=== PATIENT | male | born 1950 | race Caucasian/White ===

== ENCOUNTER 2017-04-11 22:39 | Emergency (ER) | payer MEDICARE ==
--- NOTE | 2017-04-11 22:56 | ED.PDOC ---
History of Present Illness - General Chief Complaint: Behavioral / Psych Stated Complaint: anxious Time Seen by Provider: 04/11/17 22:51 Source: patient, RN notes reviewed, Vital Signs reviewed, EMS Exam Limitations: no limitations - History of Present Illness Initial Comments: Patient reports that he feels like he is going to crawl out of his skin. Very anxious. Called EMS due to just not being able to drive anymore. + nausea & vomiting X3. He did take 2 doses of pain medication today for a chronic shoulder issue. He also took some buspar. He is diabetic but BS checked by EMS was 157. Timing/Duration: this evening Severity: moderate Associated Symptoms: anxiety Allergies/Adverse Reactions: Allergies Codeine Allergy (Verified 04/11/17 22:53) Penicillamine Allergy (Verified 04/11/17 22:53) Home Medications: Ambulatory Orders Buspar 04/11/17 Triazolam 04/11/17 Lorazepam [Ativan] 0.5 mg PO BID PRN #10 tab 04/12/17 Review of Systems - Review of Systems Constitutional: States: no symptoms reported EENTM: States: no symptoms reported Respiratory: States: no symptoms reported Cardiology: States: no symptoms reported Gastrointestinal/Abdominal: States: nausea, vomiting. Denies: abdominal pain Musculoskeletal: States: joint pain - R shoulder - chronic Skin: States: no symptoms reported Neurological: States: see HPI, anxiety, headache - chronic per patient All other Systems: No Change from Baseline Family Medical History - Family History Paternal Family History: Unknown Living Status: Unknown Physical Exam - Physical Exam General Appearance: Agitated, Anxious, Obvious distress, Well Developed, Well Groomed, Well Hydrated, Well Nourished Neck: non-tender, full range of motion, supple, normal inspection Respiratory: chest non-tender, lungs clear, normal breath sounds, no respiratory distress, no accessory muscle use Cardiovascular/Chest: regular rate, rhythm, no edema, no gallop, no JVD, no murmur Gastrointestinal/Abdominal: normal bowel sounds, non tender, soft, no organomegaly, no pulsatile mass Extremities Exam: non-tender, normal range of motion, no evidence of injury Neurological: alert, oriented x 3, anxious Appearance: appropriate appearance, appropriate insight Behavior/Eye Contact/Speech: cooperative, good eye contact, normal speech Thoughts/Hallucinations: normal thought pattern Skin Exam: normal color, warm/dry Progress - Progress Progress: 04/11/17 23:40 Patient is feeling better after Ativan but legs are still very restless. Will try Mirapex. 04/12/17 00:06 Decided to hold Mirapex as when left alone patient is sleeping comfortably. 04/12/17 01:33 Patient still sleeping but easily arousable. Less anxious, feeling better. No longer moving his legs all over. Much calmer. Will d/c home with Rx for Ativan and follow up with PCP. - Results/Orders Results/Orders: Laboratory Tests 04/11/17 04/11/17 04/11/17 23:05 23:05 23:05 WBC 8.9 RBC 4.83 Hgb 12.8 L Hct 38.6 L MCV 79.8 L MCH 26.5 L MCHC 33.1 RDW 15.1 H Plt Count 250 MPV 7.1 L Absolute Neuts (auto) 7.20 H Absolute Lymphs (auto) 1.00 Absolute Monos (auto) 0.50 Absolute Eos (auto) 0.10 Absolute Basos (auto) 0.10 Neutrophils % 81.5 H Lymphocytes % 11.7 L Monocytes % 5.6 Eosinophils % 0.6 L Basophils % 0.6 Sodium 139 Potassium 3.8 Chloride 104 Carbon Dioxide 30 Anion Gap 8.8 L BUN 19 H Creatinine 0.83 BUN/Creatinine Ratio 22.9 H Random Glucose 97 Serum Osmolality 279.7 Calcium 9.6 Total Bilirubin 0.2 AST 19 ALT 17 Alkaline Phosphatase 64 Serum Total Protein 6.2 L Albumin 3.8 Globulin 2.4 Albumin/Globulin Ratio 1.6 Urine Color Urine Appearance Urine pH Ur Specific [place] Urine Protein Urine Glucose (UA) Urine Ketones Urine Blood Urine Nitrite Urine Bilirubin Urine Urobilinogen Ur Leukocyte Esterase Urine RBC Urine WBC Ur Epithelial Cells Urine Bacteria Urine Mucus Urine Opiates Screen Urine Barbiturates Ur Phencyclidine Scrn U Amphetamin/Meth Scrn U Benzodiazepines Scrn U Cocaine Metab Screen U Cannabinoids Screen Ethyl Alcohol < 5.40 04/11/17 04/11/17 23:10 23:10 WBC RBC Hgb Hct MCV MCH MCHC RDW Plt Count MPV Absolute Neuts (auto) Absolute Lymphs (auto) Absolute Monos (auto) Absolute Eos (auto) Absolute Basos (auto) Neutrophils % Lymphocytes % Monocytes % Eosinophils % Basophils % Sodium Potassium Chloride Carbon Dioxide Anion Gap BUN Creatinine BUN/Creatinine Ratio Random Glucose Serum Osmolality Calcium Total Bilirubin AST ALT Alkaline Phosphatase Serum Total Protein Albumin Globulin Albumin/Globulin Ratio Urine Color Yellow Urine Appearance Clear Urine pH 6.5 Ur Specific [place] 1.025 Urine Protein Negative Urine Glucose (UA) Negative Urine Ketones Negative Urine Blood Negative Urine Nitrite Negative Urine Bilirubin Negative Urine Urobilinogen 0.2 Ur Leukocyte Esterase Negative Urine RBC 0 Urine WBC 0 Ur Epithelial Cells 0 Urine Bacteria Rare Urine Mucus Trace Urine Opiates Screen Negative Urine Barbiturates Negative Ur Phencyclidine Scrn Negative U Amphetamin/Meth Scrn Negative U Benzodiazepines Scrn Negative U Cocaine Metab Screen Negative U Cannabinoids Screen Negative Ethyl Alcohol Departure - Departure Clinical Impression: Anxiety disorder due to known physiological condition Time of Disposition: 01:35 Disposition: Discharge to Home or Self Care Condition: Good Departure Forms: ED Discharge - Pt. Copy, Patient Portal Self Enrollment Instructions: Generalized Anxiety Disorder Diet: resume usual diet Activity: increase activity as tolerated Referrals: Reji Guadarrama MD [Primary Care Provider] - 1-5 Days Prescriptions: Lorazepam [Ativan] 0.5 mg PO BID PRN #10 tab PRN Reason: Anxiety Home Medications: Ambulatory Orders Buspar 04/11/17 Triazolam 04/11/17 Lorazepam [Ativan] 0.5 mg PO BID PRN #10 tab 04/12/17
[2017-04-11] MEDS ORDERED: PRAMIPEXOLE 0.25 MG TAB PO ONE (23:40)
[2017-04-12 00:21] VITALS: O2SAT 93
[2017-04-12 01:53] VITALS: BP 117/68; TEMP 97.2
== END 2017-04-12 01:53 | disposition home or self-care (01) ==
LOC: ER 22:39
DX: F06.4 Anxiety disorder due to known physiological condition (principal); E11.9 Type 2 diabetes mellitus without complications; Z88.6 Allergy status to analgesic agent; Z88.0 Allergy status to penicillin; Z79.899 Other long term (current) drug therapy
CPT/HCPCS: 36415; 80053; 80307; 80320; 81001; 85025; J2060

== ENCOUNTER → 2017-07-04 | Outpatient (CLI) | payer MEDICARE | END | disposition home or self-care (01) | LOC: GMAB 16:31 | PROVIDERS: ATTEND Family Medicine | DX: Z12.5 Encounter for screening for malignant neoplasm of prostate (principal) ==

== ENCOUNTER → 2018-05-22 | Outpatient (CLI) | payer OTHER, MEDICARE | LOC: GMAJS 10:23 | PROVIDERS: ATTEND Family Medicine | DX: R97.20 Elevated prostate specific antigen [PSA] (principal) ==

== ENCOUNTER → 2018-06-07 | Outpatient (CLI) | payer MEDICARE ==
--- NOTE | 2018-06-07 14:55 | CT ---
EXAM DESCRIPTION: Chest w/o Contrast : Computed Tomography. CLINICAL HISTORY: PULMONARY NODULE. Possible 5 mm pulmonary nodule left lung COMPARISON: . Chest x-ray at [facility] 10/30/2017. TECHNIQUE: Spiral-axial scans at 2.5 mm intervals through the lungs and thorax without IV contrast. 2.5 mm lung algorithm axial reconstructions. 2.0 Mm reconstructions. Total Exam DLP: 380.05 mGy-cm. This exam was performed according to our departmental dose-optimization program which includes automated exposure control, adjustment of the mA and/or kV according to patient size and/or use of iterative reconstruction technique; to reduce radiation dose to as low as reasonably achievable (ALARA). FINDINGS: [place]- shaped subpleural nodule measuring 6 mm, too small to determine calcification in the lateral left upper lobe (axial series 2, image 15). Smooth margins. No suspicious nodules in the region of interest as described on the chest x-ray. Large hiatal hernia extending into the left hemithorax at the base with compression atelectasis of the left lower lobe. Minimal fibrosis at the base of the lingula. Dependent atelectasis or fibrosis in the base of the right lung. Occasional paraseptal blebs in the right upper lobe. No suspicious nodules masses or infiltrates in the right lung. No pleural effusion or pneumothorax bilaterally. Normal radiodensity in the thyroid gland. Evaluation of the soft tissues limited due to lack of IV contrast. No enlarged lymph nodes in the axilla, chest wall, mediastinum or hilum. Large hiatal hernia also impresses on the inferior left posterior mediastinum. Minimal atherosclerotic calcification in the thoracic aorta. Included peritoneal space with no fluid or free air. Included margins demonstrating normal density and gallbladder is visualized. No gastric outlet obstruction. Moderate thoracic kyphoscoliosis. Minimal narrowing of the bilateral glenohumeral joints. Other included osseous structures are unremarkable. IMPRESSION: 1. 6 mm juxtapleural nodule, probably soft tissue with lobular to smooth margins, and no spiculations, in the lateral left upper lobe near the apex. No nodule is seen in the region indicated by previous chest x-ray. No routine CT follow-up is recommended, following [employer] Best Practice recommendations for perifissural and juxtapleural nodules. Reference: Radiology. 2017.; 284(1):228-24; Radiology. 2011; 265(2):611-6; Radiology. 2009; 254:949-56 2. Minimal paraseptal blebs in the bilateral upper lobes. Consistent with mild emphysema. 3. Compressive atelectasis in the left lower lobe due to large hiatal hernia also with mass effect on the inferior mediastinum. Electronically signed by: Wally Hunt MD 06/07/2018 2:53 PM CDT
== END ==
LOC: CT 08:00
PROVIDERS: ATTEND Family Medicine
DX: R91.8 Other nonspecific abnormal finding of lung field (principal); R91.1 Solitary pulmonary nodule

== ENCOUNTER → 2018-07-26 | Outpatient (CLI) | payer MEDICARE | LOC: GMAE 16:55 | PROVIDERS: ATTEND Family Medicine | DX: D53.9 Nutritional anemia, unspecified (principal); G25.81 Restless legs syndrome ==

== ENCOUNTER → 2018-09-17 | Outpatient (CLI) | payer MEDICARE ==
--- NOTE | 2018-09-17 16:30 | CT ---
PROCEDURE: Abdoment/Pelvis w/o Contrast HISTORY: RENAL COLIC Indication: Same as above Comparison: None Technique: CT of the abdomen and pelvis was done without intravenous contrast. Images were obtained from the lung base to the level of the pubic symphysis in axial plane, followed by orthogonal sagittal and coronal reconstruction. Oral contrast was not given for the study. This exam was performed according to our departmental dose-optimization program, which includes automated exposure control, adjustment of the mA and/or KV according to the patient's size and/or use of iterative reconstruction technique. FINDINGS: Images through the lung bases do not show any focal infiltrates or pleural effusions. The liver, gallbladder, pancreas, spleen and the bilateral adrenal glands appear unremarkable, given the limitation of lack of intravenous contrast. The bilateral kidneys do not show any evidence of hydronephrosis or nephrolithiasis. The bilateral ureters and the bilateral periureteral soft tissues and fat planes are unremarkable. The prostate is significantly enlarged. There is circumferential thickening of the wall of the urinary bladder which may be due to underlying cystitis or due to detrusor hypertrophy due to enlarged prostate gland There is a large hiatal hernia containing significant portion of the stomach The small bowel appears unremarkable, without any evidence of small bowel obstruction or bowel wall thickening. There is no CT evidence of acute appendicitis, pericecal inflammatory change or ileocecal mesenteric adenitis. The ileocecal junction appears unremarkable. There is no CT evidence of acute colonic diverticulitis or colitis or large bowel obstruction. There is large bowel diverticulosis There is no pathological lymphadenopathy in the retroperitoneum or in the pelvic region. There is no evidence of free fluid or free air in the abdomen or the pelvic region. There is no clinically significant abdominal aortic aneurysm. There is presence of small fat-containing periumbilical ventral hernia. There is a tiny fat-containing periumbilical ventral hernia as well The visualized lumbar spine shows a scoliotic curvature with superimposed mild degenerative change. The paravertebral soft tissues are unremarkable. The remainder of the pelvic structures are unremarkable. IMPRESSION: The bilateral kidneys do not show any evidence of hydronephrosis or nephrolithiasis. The prostate is significantly enlarged. There is circumferential thickening of the wall of the urinary bladder which may be due to underlying cystitis or due to detrusor hypertrophy due to enlarged prostate gland There is a large hiatal hernia containing significant portion of the stomach Electronically signed by: Mio Zaragoza MD 09/17/2018 4:28 PM CDT Workstation: [id number]
== END ==
LOC: CT 15:53
PROVIDERS: ATTEND Family Medicine
DX: N23 Unspecified renal colic (principal); K44.9 Diaphragmatic hernia without obstruction or gangrene; R97.20 Elevated prostate specific antigen [PSA]

== ENCOUNTER → 2018-11-02 | Outpatient (CLI) | payer MEDICARE | LOC: GMAE 10:18 | PROVIDERS: ATTEND Family Medicine | DX: M10.072 Idiopathic gout, left ankle and foot (principal) ==

== ENCOUNTER → 2019-02-25 | Outpatient (CLI) | payer MEDICARE | LOC: GMAE 18:23 | PROVIDERS: ATTEND Family Medicine | DX: E11.42 Type 2 diabetes mellitus with diabetic polyneuropathy (principal); G60.3 Idiopathic progressive neuropathy ==

== ENCOUNTER → 2019-10-22 | Outpatient (CLI) | payer MEDICARE ==
--- NOTE | 2019-10-22 21:05 | US ---
EXAM DESCRIPTION: Gall Bladder: ULTRASOUND. CLINICAL HISTORY: LEFT LOWER QUADRANT PAIN COMPARISON: Abdomen pelvis CT scan August 2018. TECHNIQUE: Transabdominal scanning: Gregg-scale and Doppler modes. FINDINGS: Gallbladder: Normal size. Multiple echogenic stones with posterior acoustic shadowing mobile with patient change in position. No fluid around the gallbladder. No wall thickening. 2.1 mm. Non-tender with transducer pressure. Common bile duct: caliber 4.1 mm within normal limits. Liver: normal echogenicity; contour liver capsule smooth where seen. No fluid around the liver. Intrahepatic biliary ducts normal caliber. Doppler hepatopedal flow portal vein.. Long axis right lobe 15.6 cm. Pancreas: Not well visualized. Aorta: 1.5 cm proximal normal caliber. Right kidney: text. IMPRESSION: 1. Cholelithiasis but nontender, so cholecystitis is unlikely. Normal caliber of the common bile duct. No ascites. 2. Liver, right kidney, and aorta are unremarkable. Pancreas was not well seen. Electronically signed by: Wally Hunt MD 10/22/2019 9:03 PM [facility]
== END ==
LOC: US 13:10
PROVIDERS: ATTEND Family Medicine
DX: K80.20 Calculus of gallbladder without cholecystitis without obstruction (principal); R63.4 Abnormal weight loss

== ENCOUNTER → 2020-01-23 | Outpatient (CLI) | payer MEDICARE | LOC: GMAE 14:25 | PROVIDERS: ATTEND Family Medicine | DX: Z12.5 Encounter for screening for malignant neoplasm of prostate (principal); Z79.899 Other long term (current) drug therapy; E11.42 Type 2 diabetes mellitus with diabetic polyneuropathy | CPT/HCPCS: 84443; G0103 ==

== ENCOUNTER → 2020-05-04 | Outpatient (CLI) | payer MEDICARE | LOC: GMAE 14:33 | PROVIDERS: ATTEND Family Medicine | DX: R97.20 Elevated prostate specific antigen [PSA] (principal); E11.65 Type 2 diabetes mellitus with hyperglycemia ==

== ENCOUNTER 2020-05-09 15:25 | Inpatient (IN) | payer MEDICARE ==
[2020-05-09] MEDS ORDERED: SODIUM CHLORIDE 0.9% 1000ML 1,000 ML IVS ONE ×2 (15:52→20:26)
--- NOTE | 2020-05-09 16:19 | RAD ---
EXAM DESCRIPTION: Abdomen Series CLINICAL HISTORY: 69 years Male ,3d diarrhea COMPARISON: 09/17/2018 TECHNIQUE: Frontal view chest x-ray and two views of the abdomen. FINDINGS: The cardiomediastinal silhouette appears unremarkable. No consolidating infiltrates or pleural effusions. Retrocardiac density appears to represent hiatal hernia as noted on the previous CT of the abdomen and pelvis. No free air is identified beneath the hemidiaphragms. No dilated loops of bowel to suggest obstruction. Scoliosis in the thoracolumbar spine. IMPRESSION: Retrocardiac density likely reflecting known hiatal hernia. No acute process in the abdomen Electronically signed by: Katya Herrera MD 05/09/2020 4:18 PM CDT
[2020-05-09] MEDS ORDERED: KCL 40MEQ/NS 1,000 ML IVS ONE (16:44)
[2020-05-09] MEDS ORDERED: metroNIDAZOLE IV PREMIX 500MG 500 MG in PREMIX BAG 1 BAG IVPB ONE (17:05)
[2020-05-09] MEDS ORDERED: levoFLOXacin 500MG IV 500 MG in PREMIX BAG 1 BAG IVPB ONE (17:05)
[2020-05-09] MEDS ORDERED: ONDANSETRON INJ 4 MG/2 ML VIAL IV ONE (17:37)
--- NOTE | 2020-05-09 17:43 | CT ---
PROCEDURE: CT Abdomen/Pelvis w/o Contrast CLINICAL HISTORY: 69 years Male Diarrhea 4d, 77% bands on blood work TECHNIQUE: Contiguous axial images obtained through the abdomen and pelvis without intravenous contrast administration. Coronal and sagittal reformatted images provided. This CT exam was performed according to our departmental dose-optimization program, which includes one or more of the following dose reduction techniques: automated exposure control, adjustment of the mA and/or kV according to patient size, and/or use of iterative reconstruction technique. COMPARISON: 09/17/2018 FINDINGS: Again seen is a moderate to large hiatal hernia containing the majority of the stomach. No gastric volvulus or evidence of obstruction. Minimal bibasilar atelectasis. Again seen is a large distal duodenal diverticulum containing an air-fluid level. This does not appear inflamed. There is mild inflammation of the pericolonic fat adjacent to the ascending colon without visualized mural thickening on this noncontrast study. There is trace free fluid in the pelvis. No other inflammatory changes noted. There is colonic diverticulosis without visualized focal diverticulitis. Pancreatic atrophy without inflammation or focal lesion. The unenhanced liver, biliary tree, gallbladder, spleen, adrenal glands, and kidneys are normal. Again seen is pronounced enlargement of the prostate with diffuse thickening of the urinary bladder wall. The bladder is decompressed. Atherosclerosis without abdominal aortic aneurysm. S-shaped thoracolumbar scoliosis without acute fracture or aggressive osseous lesion. IMPRESSION: Findings suggestive of mild ascending colitis. No bowel obstruction or perforation. Colonic diverticulosis without visualized focal diverticulitis. Stable moderate to large hiatal hernia. Stable duodenal diverticulum. Again seen is pronounced enlargement of the prostate with likely chronic thickening of the urinary bladder wall. Electronically signed by: Haley Floyd MD 05/09/2020 5:41 PM CDT
[2020-05-09] MEDS ORDERED: INSULIN LISPRO 100 UNITS/ML PEN SUBCU ONE (18:12)
[2020-05-09] MEDS ORDERED: LOPERAMIDE CAP 2 MG CAP PO ONE (18:30)
--- NOTE | 2020-05-09 18:59 | ED.PDOC ---
History of Present Illness - General Chief Complaint: GI Problem Stated Complaint: diarrhea,nausea Time Seen by Provider: 05/09/20 15:31 Source: patient Exam Limitations: no limitations - History of Present Illness Initial Comments: The patient is a 69-year-old male presented emergency room secondary to 3 days of diarrhea with some cramping. He has had a few episodes of nausea and vomiting. He denies any point tenderness. No blood in the stool. He is going to the bathroom 10-20 times per day. He has been using Imodium. No history of diverticulitis. He still has his appendix and gallbladder. No history of pancreatitis. He has not been around anyone with GI symptoms. No history of recent exotic travel. No dietary restrictions. No blood in the vomitus or stool. He feels that he is getting dehydrated and achy. He reports that he did have a scope within the last year. Timing/Duration: other - 3 days Severity: severe Improving Factors: nothing Worsening Factors: nothing Associated Symptoms: loss of appetite, malaise, nausea/vomiting Allergies/Adverse Reactions: Allergies Codeine Allergy (Verified 04/11/17 22:53) Penicillamine Allergy (Verified 04/11/17 22:53) Home Medications: Ambulatory Orders Buspar 04/11/17 Triazolam 04/11/17 Lorazepam [Ativan] 0.5 mg PO BID PRN #10 tab 04/12/17 Review of Systems - Review of Systems Constitutional: States: malaise EENTM: States: no symptoms reported Respiratory: States: no symptoms reported Cardiology: States: no symptoms reported Gastrointestinal/Abdominal: States: abdominal pain, diarrhea, nausea, vomiting Genitourinary: States: no symptoms reported Musculoskeletal: States: no symptoms reported Skin: States: no symptoms reported Neurological: States: no symptoms reported Endocrine: States: no symptoms reported Hematologic/Lymphatic: States: no symptoms reported All other Systems: No Change from Baseline Past Medical History (General) - Patient Medical History Hx Seizures: No Hx Stroke: No Hx Dementia: No Hx Asthma: No Hx of COPD: No Hx Cardiac Disorders: No Hx Congestive Heart Failure: No Hx Pacemaker: No Hx Hypertension: No Hx Thyroid Disease: No Hx Diabetes: Yes Hx Gastroesophageal Reflux: No Hx Renal Disease: No Hx Cancer: No Hx of HIV: No Hx Hepatitis C: No Hx MRSA: No Surgical History: no surgical history - Vaccination History Hx Tetanus, Diphtheria Vaccination: Yes Hx Influenza Vaccination: Yes Hx Pneumococcal Vaccination: Yes - Social History Hx Tobacco Use: Yes Hx Chewing Tobacco Use: No Hx Alcohol Use: No Hx Substance Use: No Hx Substance Use Treatment: No Hx Depression: Yes Hx Physical Abuse: No Hx Emotional Abuse: No Hx Suspected Abuse: No - Female History Patient : No Family Medical History - Family History Paternal Family History: Unknown Living Status: Unknown Physical Exam - Physical Exam General Appearance: Alert, No apparent distress Eye Exam: bilateral normal Ears, Nose, Throat: hearing grossly normal, normal pharynx Neck: full range of motion, supple Respiratory: lungs clear, normal breath sounds, no respiratory distress, no accessory muscle use Cardiovascular/Chest: normal peripheral pulses, regular rate, rhythm, no edema Peripheral Pulses: radial,right: 2+, radial,left: 2+ Gastrointestinal/Abdominal: soft, other - Vague diffuse discomfort to palpation. No rebound or peritoneal signs. No definite palpable mass. Rectal Exam: deferred Back Exam: no CVA tenderness, no vertebral tenderness Extremity: normal range of motion, non-tender, normal inspection, no pedal edema, normal capillary refill Neurologic: scale shooter II-XII nml as tested, alert, normal mood/affect, oriented x 3 Skin Exam: normal color Comments: Vital Signs - 24 hr 05/09/20 05/09/20 05/09/20 15:43 16:34 18:00 Temperature 99.7 F H 98.3 F Pulse Rate [ 103 H 101 H 96 H Right Brachial] Respiratory 20 20 16 Rate Blood Pressure 123/92 116/100 121/76 [Right Arm] O2 Sat by Pulse 96 95 95 Oximetry Progress - Progress Progress: 05/09/20 19:00 The patient is a 69-year-old male presented emergency room secondary to 3 days of nausea vomiting and diarrhea. Diarrhea has been the predominant symptom. The patient was markedly dehydrated and has significant hyponatremia and hypokalemia as a result. He has received 2 L of IV fluids as well as some potassium supplementation. He does have lactic acidosis which should also help be corrected with the IV fluids. He has continued to have multiple episodes of diarrhea since his arrival. He is also in mild to moderate acute renal failure due to the problems as listed above. The source of this is most likely an ascending colitis. Based on the bandemia, he likely has septicemia from this. He has been placed on Levaquin and metronidazole. Blood cultures have been done. The patient will be admitted for continued IV therapy for both antibiotics, electrolyte replacement and fluid replacement. He will need to have repeat CBCs with manual differentials to confirm improvement. If the mary ent clinically improves but the bandemia fails to, then consideration could be given towards some form of myelodysplasia. Admit for continued care. almaz brown [id number] - Results/Orders Results/Orders: Acute abdominal series essentially appears benign. CT scan of the abdomen pelvis shows a longstanding hiatal hernia, changes consistent with mild a sending colitis, large distal duodenal diverticulum without evidence of inflammation. There is an air-fluid level. There is also chronic prostate enlargement and chronic bladder wall thickening as compared to previous. See report for details. 05/09/20 15:55 STOOL CULTURE Stat C. difficile test is negative. 05/09/20 17:42 BLOOD CULTURE Stat Laboratory Results - last 24 hr 05/09/20 05/09/20 05/09/20 15:56 15:56 15:56 WBC 4.4 L RBC 6.27 H Hgb 18.1 H Hct 52.1 H MCV 83.1 MCH 28.9 MCHC 34.8 RDW 13.1 Plt Count 208 MPV 8.2 Absolute Neuts (auto) Not Reportable Absolute Lymphs (auto) Not Reportable Absolute Monos (auto) Not Reportable Absolute Eos (auto) Not Reportable Neutrophils % Not Reportable Neutrophils % (Manual) 3.0 L Lymphocytes % Not Reportable Lymphocytes % (Manual) 15.0 Monocytes % Not Reportable Monocytes % (Manual) 5.0 Eosinophils % Not Reportable Basophils % Not Reportable Band Neutrophils 77.0 H* Platelet Estimate Normal Normal RBC Morphology 1+poikilocytosis pCO2 pO2 HCO3 ABG pH ABG O2 Saturation ABG Base Excess Oxyhemoglobin % Carboxyhemoglobin % Methemoglobin % Sat Calc Total Hemoglobin Sodium 128 L Potassium 3.1 L Chloride 93 L Carbon Dioxide 22 Anion Gap 16.1 BUN 32 H Creatinine 1.42 H BUN/Creatinine Ratio 22.5 H Random Glucose 199 H Serum Osmolality 269.6 L Lactic Acid 2.7 H* Calcium 9.8 Magnesium 2.2 Total Bilirubin 0.7 AST 26 ALT 17 Alkaline Phosphatase 80 Serum Total Protein 7.3 Albumin 3.8 Globulin 3.5 Albumin/Globulin Ratio 1.1 Amylase 19 L Lipase 21 L Total PSA Urine Color Urine Appearance Urine pH Ur Specific [place] Urine Protein Urine Glucose (UA) Urine Ketones Urine Blood Urine Nitrite Urine Bilirubin Urine Urobilinogen Ur Leukocyte Esterase Urine RBC Urine WBC Ur Epithelial Cells Urine Bacteria 05/09/20 05/09/20 05/09/20 17:05 17:20 17:42 WBC RBC Hgb Hct MCV MCH MCHC RDW Plt Count MPV Absolute Neuts (auto) Absolute Lymphs (auto) Absolute Monos (auto) Absolute Eos (auto) Neutrophils % Neutrophils % (Manual) Lymphocytes % Lymphocytes % (Manual) Monocytes % Monocytes % (Manual) Eosinophils % Basophils % Band Neutrophils Platelet Estimate Normal RBC Morphology pCO2 35 pO2 65 L HCO3 21.9 ABG pH 7.403 ABG O2 Saturation 93.4 L ABG Base Excess -2.1 Oxyhemoglobin % 92.2 L Carboxyhemoglobin % 0.7 Methemoglobin % Sat 0.6 Calc Total Hemoglobin 17.9 H Sodium Potassium Chloride Carbon Dioxide Anion Gap BUN Creatinine BUN/Creatinine Ratio Random Glucose Serum Osmolality Lactic Acid Calcium Magnesium Total Bilirubin AST ALT Alkaline Phosphatase Serum Total Protein Albumin Globulin Albumin/Globulin Ratio Amylase Lipase Total PSA 7.14 H Urine Color Dk yellow Urine Appearance Cloudy Urine pH 5.5 Ur Specific [place] 1.025 Urine Protein 100 H Urine Glucose (UA) 500 H Urine Ketones Negative Urine Blood Negative Urine Nitrite Negative Urine Bilirubin Moderate Urine Urobilinogen 0.2 Ur Leukocyte Esterase Negative Urine RBC 0 Urine WBC 0-1 Ur Epithelial Cells 1-3 Urine Bacteria Rare Departure - Departure Clinical Impression: Colitis, Hyponatremia, Hypokalemia, Dehydration, Septicemia Disposition: Admit Patient Departure Forms: ED Discharge - Pt. Copy, Patient Portal Self Enrollment Referrals: PIYUSH CASTELLANOS MD [Primary Care Provider] - 1-2 Weeks Home Medications: Ambulatory Orders Buspar 04/11/17 Triazolam 04/11/17 Lorazepam [Ativan] 0.5 mg PO BID PRN #10 tab 04/12/17 Decision To Admit - Decistion To Admit Decision to Admit Reason: Medical Nature Decision to Admit Date: 05/09/20 Decision to Admit Time: 19:03
--- NOTE | 2020-05-09 19:46 | HP ---
SUPERVISING PHYSICIAN: Yordan Skinner MD CHIEF COMPLAINT: Nausea with associated diarrhea. HISTORY OF PRESENT ILLNESS: Mr. Anderson is a 69 year-old male who presented to the Emergency Department late last night complaining of 3 days of diarrhea with some associated cramping. He has also had a few episodes of some nausea and vomiting but denies any actual point tenderness, any bright red blood in his stools. He is endorsing that he has been going to the bathroom well over 20 times daily and he has been using Imodium. He has no mention of any history of diverticulitis. He denies any ill contacts with anybody with similar symptoms. No recent anxiety travel. He presented to the Emergency Room because he felt like he was getting dehydrated and was having body aches. Laboratory studies showed he had a white count of 4,400 with hemoglobin 18.2 and hematocrit 52.1 but his differential did show a left shift with significant bandemia with 77% bands. Blood gas analysis showed a pH of 7.4 with P02 of 65, bicarb of 22, 74% on room air. His chemistries initially on presentation did show he had an elevated lactic acid of 2.7, low sodium of 128 as well as low potassium at 3.1. Creatinine was up to 1.42 with a BUN of 32. Liver functions were all showing to be within normal limits as well as lipase and amylase. He does have a history of elevated PSH and some difficulty with urination with the current PSA at 7.14 on admission. Urinalysis showed 100 protein, 500 glucose, otherwise within normal limits. Stool culture was sent, C-diff A and B were negative for toxin and antigen. Blood cultures were also submitted. He was started on antibiotics with Levaquin and Flagyl and put on IV fluids given his significant dehydration. Given the degree of left shift with bands and question of underlying sepsis, the patient is going to be admitted for further treatment and evaluation. He was admitted in stable condition. PAST MEDICAL HISTORY: 1. Gastroesophageal reflux disease. 2. Type 2 diabetes mellitus. 3. Elevated PA levels. 4, Migraines. 5. Cholelithiasis. PAST SURGICAL HISTORY: No surgeries listed. CURRENT MEDICATIONS: 1. Gabapentin 100 mg t.i.d. 2. Abilify 10 mg daily. 3. Zofran 4 mg as needed. 4. Protonix 30 mg a.c. and breakfast. 5. Amitriptyline Hydrochloride. 6. Toujeo 45 units daily. 7. Flomax 4 mg daily. ALLERGIES: CODEINE AND PENICILLAMINE. FAMILY HISTORY: Noncontributory. SOCIAL HISTORY: The patient lives alone. He lives at [facility]. He has a history of smoking, but quit multiple years previously. REVIEW OF SYSTEMS: CONSTITUTIONAL: Positive for general malaise, but denies any fevers or unintentional weight loss. HEENT: Negative for earache, sore throat, nasal congestion, headaches, vision changes. RESPIRATORY: Denies coughing, wheezing, shortness of breath. CARDIOVASCULAR: Denies chest pain, palpitations, syncopal episodes. GASTROINTESTINAL: Denies abdominal pain, but persistent diarrhea with associated nausea. No actual emesis. No reported diarrheal or blood per rectum or any other significant changes other than diarrhea over the last 3 days. EXTREMITIES: No arthralgias, joint swelling. SKIN: No lesions, rashes, moles or unexplained changes. NEUROLOGIC: No vision changes, syncopal episodes, ataxia, seizures or other focal deficits. HEMATOLOGIC: Negative for easy bruising, unexplained bleeding or transfusion reactions. PHYSICAL EXAMINATION: VITAL SIGNS: Initially on presentation, low-grade temperature of 99.7, pulse 103, blood pressure 123/92, respirations 20, oxygen saturation 96% on room air. GENERAL: the patient is alert, resting comfortably, does not appear to be in any acute distress. HEENT: Tympanic membranes clear bilaterally. Oropharynx pink and moist without any lesions. NECK: Supple, full range of motion, non-tender. CARDIOVASCULAR: Regular rate and rhythm without appreciable murmurs, rubs, or gallops. ABDOMEN: Soft, diffusely tender across the entire abdomen, more so on the left than the right. No definite peritoneal signs. No rebound tenderness. BACK: No CVA tenderness, no vertebral tenderness. EXTREMITIES: Moves all extremities ad hero. No cyanosis, clubbing, or edema. NEUROLOGIC: Cranial nerves II through XII are grossly intact. He is alert and oriented x3. Skin was warm, pink and dry. LABORATORY: White count initially 4,400, hemoglobin 18.1, hematocrit 52.2. Differential did show a left shift with 77% bands. Blood gas analysis showed a pH of 7.40 with a PC02 of 35, P02 of 65, bicarbonate 22, oxygen saturation 93% on room air. Chemistries show sodium initially 128, potassium 3.1, BUN 32, creatinine 1.42, lactic acid 2.7, liver functions well-encapsulated as well as amylase and lipase. Urinalysis pending. MICROBIOLOGY: Blood cultures negative. C-difficile toxin A and B negative. Stool cultures pending. RADIOLOGY: Abdominal/pelvis x-ray per radiology interpretation showed no abdominal findings. This was followed with abdominal/pelvis CT without contrast and per radiology interpretation findings were suggestive of ascending colitis but no bowel obstruction or perforation. There is note of chronic diverticulosis without visualized local diverticulitis. There was note of a stable moderate to large hiatal hernia with a duodenal diverticulum and for now, enlargement of the prostate. The prostate was noted to be enlarged with chronic thickening of the urinary' bladder wall. ASSESSMENT: 1. Infective colitis, etiology uncertain at this point. 2. Dehydration secondary to #1. 3. Diabetes mellitus type 2 on insulin therapy. 4. Gastroesophageal reflux disease, chronic. 5. Chronic elevated PSA. 6. Migraines. 7. Cholelithiasis. PLAN: Mr. Anderson is going to be admitted for initiation of treatment for his underlying dehydration and further workup in regard to the sepsis. We will go ahead and continue antibiotic coverage with Flagyl and Levaquin at this point. I have him on IV fluids, D5 1/2 with potassium which we probably need to switch to normal saline once he starts eating. He is on DVT prophylaxis per protocol. He is on sliding scale for insulin protocol. We will resume his home medications once those have been updated and verified. I would anticipate his length of stay to be at least 2 to 3 days, possibly discharging tomorrow. Until we can transition him to outpatient management, we will slowly advance his diet as tolerated and treat as needed. #[id number] [facility]
[2020-05-09] MEDS ORDERED: ONDANSETRON INJ 4 MG/2 ML VIAL IV PRN (20:17)
[2020-05-09] MEDS ORDERED: ACETAMINOPHEN 325 MG TAB PO PRN (20:17)
[2020-05-09] MEDS ORDERED: SODIUM CHLORIDE 0.9% (FLUSH) 10 ML SYG IV PRN (20:17)
[2020-05-09] MEDS ORDERED: IV SET AND CAP CHANGE INJ INJ SCH (20:30)
[2020-05-09] MEDS: LOPERAMIDE CAP 2 MG CAP PO PRN (21:29)
[2020-05-09] MEDS: KCL 20MEQ/D5NS 1,000 ML IVS PRN (22:10)
[2020-05-09] MEDS ORDERED: DEXTROSE 50% 25 GM/50 ML SYG IV PRN (23:43)
[2020-05-09] MEDS ORDERED: GLUCAGON INJ 1 MG VIAL SUBCU PRN (23:43)
[2020-05-10] MEDS: INSULIN LISPRO 100 UNITS/ML PEN SUBCU SCH ×5 (00:51→21:42)
[2020-05-10] MEDS ORDERED: metroNIDAZOLE IV PREMIX 500MG 100 ML IVPB ONE (01:49)
[2020-05-10] MEDS: metroNIDAZOLE IV PREMIX 500MG 500 MG in PREMIX BAG 1 BAG IVPB SCH ×4 (01:53→20:00)
[2020-05-10] MEDS: LOPERAMIDE CAP 2 MG CAP PO PRN ×2 (02:55→17:18)
[2020-05-10] MEDS: KCL 20MEQ/D5NS 1,000 ML IVS PRN (04:35)
[2020-05-10] MEDS ORDERED: TAMSULOSIN 0.4 MG CAP PO SCH ×2 (09:00→21:00)
[2020-05-10] MEDS: levoFLOXacin 500MG IV 500 MG in PREMIX BAG 1 BAG IVPB SCH (09:01)
[2020-05-10] MEDS: INSULIN DETEMIR 100 UNITS/ML PEN SUBCU SCH ×2 (11:45→21:44)
[2020-05-10] MEDS: KCL 20 MEQ/NS 1,000 ML IVS PRN ×2 (11:46→20:00)
[2020-05-10] MEDS ORDERED: TAMSULOSIN 0.4 MG CAP ONE (19:34)
[2020-05-10] MEDS ORDERED: ENOXAPARIN SODIUM 40 MG/0.4 ML SYG SUBCU ONE (19:34)
[2020-05-10] MEDS ORDERED: PANTOPRAZOLE SODIUM TAB 40 MG PO SCH (21:00)
[2020-05-10] MEDS ORDERED: ENOXAPARIN SODIUM 40 MG/0.4 ML SYG SUBCU SCH (21:00)
[2020-05-11] MEDS: metroNIDAZOLE IV PREMIX 500MG 500 MG in PREMIX BAG 1 BAG IVPB SCH (03:48)
[2020-05-11 06:36] VITALS: TEMP 98; O2SAT 97
[2020-05-11] MEDS: INSULIN LISPRO 100 UNITS/ML PEN SUBCU SCH (07:12)
--- NOTE | 2020-05-11 08:20 | PN ---
SUPERVISING PHYSICIAN: Deb Skinner MD DATE: 05/10/20 SUBJECTIVE: The patient this morning reports that his diarrhea has significantly slowed down and he feels a little bit better after fluids. He has not had any fevers and has not had any chest pains. He has had a little bit of nausea, but actually no emesis. OBJECTIVE: VITAL SIGNS: Temperature 98.3, pulse 78, blood pressure 115/67, respirations 16, saturation 99% on room air. GENERAL: The patient is resting comfortably and does not appear to be in any acute distress. He is alert. CHEST: Lungs are clear to auscultation. HEART: Regular rate and rhythm. ABDOMEN: Soft, nontender. Positive bowel sounds EXTREMITIES: No edema. NEUROLOGIC: Alert and oriented times three. LABORATORY: White count still shows significant bandemia at 60%. White count is 2,700 with hemoglobin 14.1, hematocrit 40.8. Chemistries show sodium up to 132, potassium 3.5. Glucoses have been ranging between 158 and 262. Calcium 8.6. MICROBIOLOGY: He has had 3 C. difficile toxins A and B, all negative. Stool culture is pending. Blood cultures remain negative. RADIOLOGY: No additional radiographic studies this morning. ASSESSMENT: 1. Infective colitis, etiology uncertain at this point. 2. Dehydration secondary to #1. 3. Diabetes mellitus, type 2, on insulin therapy. 4. Gastroesophageal reflux disease, chronic. 5. Chronic elevated PSA. 6. Migraines. 7. Cholelithiasis. PLAN: We will continue with current plan of hydration and antibiotic therapy with Levaquin and Flagyl. I resumed his home medications. He will be on DVT prophylaxis and insulin sliding scale. I would anticipate we will probably be able to discharge tomorrow. Until then, we will continue to monitor and treat as needed. #[id number] [facility]
[2020-05-11] MEDS: levoFLOXacin 500MG IV 500 MG in PREMIX BAG 1 BAG IVPB SCH (08:39)
[2020-05-11] MEDS: INSULIN DETEMIR 100 UNITS/ML PEN SUBCU SCH (08:52)
[2020-05-11 09:03] VITALS: BP 119/75
--- NOTE | 2020-05-11 14:27 | DS ---
SUPERVISING PHYSICIAN: Carlton Baker MD ADMISSION DIAGNOSIS: 1. Infective colitis. 2. Dehydration. 3. Diabetes mellitus, type 2. 4. Gastroesophageal reflux disease. 5. Chronically elevated PSA levels. 6. Migraines. 7. Cholelithiasis. DISCHARGE DIAGNOSIS: 1. Infective colitis. 2. Dehydration. 3. Diabetes mellitus, type 2. 4. Gastroesophageal reflux disease. 5. Chronically elevated PSA levels. 6. Migraines. 7. Cholelithiasis. HISTORY OF PRESENT ILLNESS: This is a 69-year-old male who presented to the Emergency Department with 3 days of diarrhea with some associated abdominal cramping. He had a few episodes of nausea and vomiting as well. He went to the ER because he was feeling dehydrated. In the ER, he was found to have a significant bandemia although he did not show any signs of sepsis. He had an acute kidney injury as well. Therefore, he was referred for admission. HOSPITAL COURSE: At the time of admission, he was placed on Levaquin and Flagyl. Over the two-day timeframe, his diarrhea improved. He was afebrile and felt better. Therefore, today he is discharged in stable condition. I have written for Levaquin and Flagyl to be given as an outpatient for the next 7 days. He should followup with his primary care physician in about a week, increase as tolerated and increase his diet as tolerated. [facility][id number] [facility]
== END 2020-05-11 09:58 | disposition home or self-care (01) | DRG 872 ==
LOC: ER 15:25 → OBSVTOIN 19:45 → MS 19:45
PROVIDERS: ADMIT Nurse Practitioner Family; ATTEND Nurse Practitioner
DX: A41.9 Sepsis, unspecified organism (principal); A09 Infectious gastroenteritis and colitis, unspecified; N17.9 Acute kidney failure, unspecified; E87.2 Acidosis; E87.1 Hypo-osmolality and hyponatremia; E86.0 Dehydration; E87.6 Hypokalemia; R97.20 Elevated prostate specific antigen [PSA]; E11.9 Type 2 diabetes mellitus without complications; K21.9 Gastro-esophageal reflux disease without esophagitis; K80.20 Calculus of gallbladder without cholecystitis without obstruction; N40.0 Benign prostatic hyperplasia without lower urinary tract symptoms; Z88.5 Allergy status to narcotic agent; Z88.0 Allergy status to penicillin; Z79.4 Long term (current) use of insulin; Z79.899 Other long term (current) drug therapy; Z87.891 Personal history of nicotine dependence